=== PATIENT | female | born 1940 | race Caucasian/White ===

== ENCOUNTER 2018-12-19 23:16 | Inpatient (IN) | payer MEDICARE | END 2018-12-23 14:10 | disposition home or self-care (01) | LOC: ER 23:16 → ED HOLD 12-20 04:20 → ORTHO 4S 12-20 12:39 | DX: A41.9 Sepsis, unspecified organism (principal); A04.9 Bacterial intestinal infection, unspecified ==

== ENCOUNTER 2019-02-04 14:35 | Emergency (ER) | payer MEDICARE ==
[~2019-02-04] VITALS: Ht 162.6 cm; Wt 72.7 kg
[~2019-02-04 14:35] MED LIST: ATOR40TA71 PO; DULO-31 PO; GABA-532 PO; LISI-600 PO; SYN0.088T PO
[2019-02-04 14:49] VITALS: BP 137/63
--- NOTE | 2019-02-04 15:34 | NUR ---
PT BACK FROM XRAY
[2019-02-04] MEDS ORDERED: ketorolac tromethamine 15mg/ml inj. IM ONE (15:55)
== END 2019-02-04 16:10 | disposition home or self-care (01) ==
LOC: ER 14:36
DX: M25.551 Pain in right hip (principal); E78.00 Pure hypercholesterolemia, unspecified; Z88.5 Allergy status to narcotic agent; Z79.899 Other long term (current) drug therapy
CPT/HCPCS: 73502; 96372; 99283; J1885